=== PATIENT | female | born 1965 | race Caucasian/White ===

== ENCOUNTER 2017-08-16 14:14 | Inpatient (IN) ==
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
[2017-08-16 14:52] LABS: Bilirubin,Urine Negative (Negative); Blood,Urine Trace (Negative); Color,Urine Dark Yellow (Yellow); Glucose,Urine (UA) Normal (Normal); Ketones,Urine Negative (Negative); Leukocyte Esterase,Urine Small (Negative); Nitrite,Urine Positive (Negative); PH,Urine 6.5 pH Units (5.0-8.0); Protein,Urine 100 mg/dL (Neg-Trace); Specific Gravity,Urine 1.024 (1.010-1.025); Urobilinogen,Urine Normal (Normal)
[2017-08-16 14:55] LABS: Bacteria,Urine Many per hpf (None-Few); Hyaline Casts,Urine None Seen per lpf (None-Few); Squamous Epithelial Cell,Urine Many per lpf (None-Few)
[2017-08-16 14:57] LABS: Clarity,Urine Hazy (Clear)
[2017-08-16 14:58] LABS: Amphetamine Screen,Urine Negative ng/mL (Cutoff=1000); Barbiturate Screen,Urine Negative ng/mL (Cutoff=200); Benzodiazepines Screen,Urine Negative ng/mL (Cutoff=200); Cannabinoid Screen,Urine Negative ng/mL (Cutoff = 50); Cocaine Screen,Urine Negative ng/mL (Cutoff= 300); Opiate Screen,Urine Negative ng/mL (Cutoff=300); Phencyclidine Screen,Urine Negative ng/mL (Cutoff=25)
[2017-08-16 14:58] LABS: Basophils # 0.1 K/mcL (0.0-0.2); Basophils % 0.4 %; Eosinophils # 0.1 K/mcL (0.0-0.6); Eosinophils % 0.4 %; Hematocrit 50.8 % (35.3-44.9); Hemoglobin 16.9 g/dL (11.5-15.4); Immature Granulocytes % 0.4 % (0-4); Lymphocytes # 2.1 K/mcL (0.6-4.6); Lymphocytes % 15.7 %; Mean Corpuscular HGB Conc 33.3 g/dL (31.6-35.5); Mean Corpuscular Hemoglobin 30.8 pg (28.0-33.3); Mean Corpuscular Volume 92.7 fL (83.0-100.0); Mean Platelet Volume 9.6 fL (9.4-12.4); Monocytes # 0.7 K/mcL (0.0-1.3); Neutrophils # 10.5 K/mcL (1.6-8.9); Platelet Count 370 K/mcL (140-400); Red Blood Count 5.48 M/mcL (3.82-4.97); Red Cell Distribution Width 12.8 % (11.5-14.5); Segmented Neutrophils % 78.1 %
[2017-08-16 15:15] LABS: Acetaminophen < 10 mcg/mL (10-20)
[2017-08-16 15:22] LABS: BUN/Creatinine Ratio 12 (6-26); Blood Urea Nitrogen 8 mg/dL (6-20); Calcium 9.8 mg/dL (8.6-10.3); Carbon Dioxide 26 mEq/L (23-29); Chloride 105 mEq/L (98-107); Ethanol < 10 mg/dL (Less than 10); Glucose 132 mg/dL (70-105); Osmolality,Calculated 288 (280-300); Potassium 3.4 mEq/L (3.5-5.1); Salicylate < 2.5 mg/dL (15.0-30.0); Sodium 139 mEq/L (136-145); Troponin I 0.04 ng/mL (< 0.04); eGFR For African Americans > 60 (> 60); eGFR For Non-African Americans > 60 (> 60)
[2017-08-16] MEDS ORDERED: cefTRIAXone 1,000 MG in Water for inj. (sterile) 20 ML 10 ML IVP ONE (15:30)
[2017-08-16] MEDS ORDERED: Aspirin 81 MG TAB.CHEW PO STA (15:30)
[2017-08-16] MEDS ORDERED: Acetaminophen 325 MG TABLET PO ONE (15:45)
[2017-08-16] MEDS ORDERED: Naloxone 0.4 MG/ML INJ IVP PRN (18:48)
[2017-08-16] MEDS ORDERED: Acetaminophen 325 MG TABLET PO PRN (18:48)
[2017-08-16] MEDS ORDERED: *HR* HYDROcodone/Acet 5/325 mg TABLET PO PRN (18:48)
[2017-08-16] MEDS ORDERED: Nitroglycerin 0.4 MG TAB.SUBL SL PRN (18:53)
[2017-08-16] MEDS ORDERED: *HR* Promethazine 25 MG/ML VIAL IVP PRN (18:57)
--- NOTE | 2017-08-16 19:12 | Internal Med History&Physical ---
<Micah Cuenca Estelle - Last Filed: 08/16/17 22:28> Date of Encounter: 08/16/17 Time of Encounter: 18:00 Internal Medicine - H&P: HPI Chief complaint: CP/Suicidal ideation Admitted From: Emergency Dept Plans for Post Hospital Care: Home History of present illness: Ms. Silveira is a 51 year old female w/PMH of COPD, DVT in the left axilla 5-6 years ago, and bipolar depression presents from the ED with chief complaint of chest pain located in the center of her chest and slightly to the left which presents as sharp and stabbing pain and intermittent in nature. Patient reports similar symptoms several years ago. Accompanying sx: SOB, N/V. No alleviating or aggravating factors. Pt. also reports suicidal ideation on admission that she states was d/t stress. Pt. denies suicidal/homicidal ideations now. Reports depression is not well-managed and needs provider for psychiatric needs. Also reports fever and chills. Denies recent illness, changes in vision, unusual bleeding, palpitations, headache, cough, congestion, abdominal pain, diarrhea, constipation, numbness, tingling, dizziness, lightheadedness, pre-syncope, or syncope. Past Med Surg Social Fam HX - Past Medical History Source: patient, old records reviewed Medical history: COPD, DVT (-6 years ago in left axilla. Not on anticoagulation presently.) Psychiatric history: bipolar, depression - Past Surgical History Surgical History: hysterectomy (Partial), orthopedic, other (Rt. ACL and meniscus) - Social History Smoking Status: Current every day smoker Packs per day: 1 PPD Smokeless Tobacco Status: No Alcohol use: occasionally Drug use: none Current living situation: Home Activity Level: Independent ambulation Recent Out of Country Travel Within the Last 8 Weeks: No Exposure or Possible Exposure to Illness During Travel: No - Family History Father Race: Family Member Ethnicity: Non- Living Status: Age at : 67 Cause of : [place] Hx Family Cardiac Disorders: Yes ([place] > 12, HLD, HTN) Hx Family Endocrine Disorder: Yes (DM) Mother Race: Family Member Ethnicity: Non- Living Status: Age at : 63 Cause of : Stroke Hx Family Cardiac Disorders: Yes (Stroke) Hx Family Genitourinary Disorders: Yes (CKD) Hx Family Endocrine Disorder: Yes (DM) Sister Race: Family Member Ethnicity: Non- Living Status: Still Living Hx Family Cancer: Yes (Female) Hx Family Endocrine Disorder: Yes (DM) Internal Medicine - H&P: Meds Oxybutynin Chloride [Ditropan Xl] 5 mg PO DAILY 11/15/16 [History] Potassium Chloride [Klor-Con 10] 10 meq PO DAILY 11/15/16 [History] Albuterol Sulfate [Albuterol Inhaler] 2 puff IH Q4-6H PRN 08/16/17 [History] Escitalopram [Lexapro] 20 mg PO DAILY 08/16/17 [History] Zaleplon [Sonata] 5 mg PO DAILY 08/16/17 [History] 3 Allergy/AdvReac Type Severity Reaction Status Date / Time No Known Allergies Allergy Verified 08/16/17 16:04 All Systems PM: A 10-system review of systems was performed and is negative for pertinent findings except as documented above in the HPI. - Constitutional Constitutional: as per HPI, chills, fever(s), no night sweats - EENT Eyes: no change in vision, no discharge, no pain, no photophobia Ears: no ear discharge, no ear pain, no tinnitus Nose, mouth and throat: no dysphagia, no nasal discharge, no neck pain, no sore throat - Breasts Breasts: as per HPI - Cardiovascular Cardiovascular ROS IM: as per HPI, chest pain, dyspnea, dyspnea on exertion, no diaphoresis, no lightheadedness, no palpitations, no syncope - Respiratory Respiratory: as per HPI, dyspnea, dyspnea on exertion, no cough, no wheezing, no excessive phlegm production - Gastrointestinal Gastrointestinal: nausea, vomiting, no abdominal pain, no diarrhea, no hematemesis, no hematochezia, no melena - Genitourinary Genitourinary: as per HPI, urinary frequency, urinary urgency, no change in urinary stream, no dysuria, no flank pain, no hematuria Menstruation: as per HPI - Musculoskeletal Musculoskeletal ROS IM: no numbness, no tingling - Integumentary Integumentary IM: no rash, no unusual bruising - Neurological Neurological ROS: no confusion, no convulsions, no focal weakness, no numbness, no tingling, no tremor(s) - Psychiatric Psychiatric: as per HPI, depression, mood swings - Endocrine Endocrine IM: as per HPI - Hematologic/Lymphatic Hematologic/Lymphatic: no easy bruising - Allergic/Immunologic Allergic/Immunologic: as per HPI - Constitutional Vitals: Temp Pulse Resp BP Pulse Ox 99.0 F 87 14 141/92 98 08/16/17 14:15 08/16/17 17:25 08/16/17 17:25 08/16/17 17:25 08/16/17 17:25 General appearance: Present: cooperative, A&O X 3, pleasant, no acute distress, answers questions appropriately - Head Head exam: Present: atraumatic, normocephalic - Eye Eye exam: Present: PERRL, conjuntiva pink, sclera anicteric Pupils: Present: PERRL - ENT ENT exam: Present: normal exam - Neck Neck exam general surgery: Present: normal inspection, supple, trachea midline. Absent: lymphadenopathy - Respiratory Respiratory exam: Present: CTAB. Absent: accessory muscle use, rales, rhonchi, wheezes - Cardiovascular Cardiovascular exam: Present: RRR, +S1, +S2. Absent: diastolic murmur, gallop, rubs, systolic murmur - GI/Abdominal GI/Abdominal exam: Present: normal bowel sounds, soft, no peritoneal signs. Absent: distended, tenderness - Rectal Rectal exam: Present: deferred - Additional comments: exam deferred. - Extremities Exam Extremities exam: Present: warm, radial pulses palpable and symmetrical. Absent : calf tenderness, cyanotic, pedal edema - Back Exam Back exam: Present: normal inspection - Neurological Exam Neurological exam: Present: CN II-XII intact, oriented X3, no focal deficits. Absent: pronater drift, facial droop, speech deficit - Psychiatric Psychiatric exam: Present: anxious - Skin Skin exam: Present: dry, intact Internal Med - H&P Results - Labs CBC & Chem 7: 08/16/17 14:45 08/16/17 14:45 - EKG Data EKG shows normal: sinus rhythm - EKG Data Prior EKG available for review: no EKG comments: 08/16/17 19:23 EKG dated 08/16/17 shows sinus rhythm with borderline left axis deviation and nonspecific T-wave abnormality. - Diagnostic Studies Chest x-ray Additional comments: Impressions Chest X-Ray 08/16/17 14:24 IMPRESSION: No radiographic abnormality identified in the chest. D/ / Mark Baird / Mark Baird Interpreting Provider: Mark Baird - Assessment and plan (1) Chest pain Current Visit: Yes Status: Acute Assessment and plan: Acute chest pain in central to left chest described as sharp/stabbing and intermittent. Previous sx several years ago. Pt. reports severe stress in her life currently and reports not taking her medications for several weeks. No radiation. Initial troponin 0.04. Will trend. Aspirin. Nitro SL PRN. Lipitor 80 mg PO now. Continuous cardiac telemetry. Echocardiogram. Second troponin 0.37. Pt. still having intermittent CP that is transient. Low-dose heparin drip ordered. Cardiology consult ordered and discussed w/Dr. Scott and I appreciate the consult. Pt. discussed w/Dr. Graham who agrees w/plan of care. Pt. is high risk for further morbidity d/t current CP and hx of CP in past, current need of heparin drip w/close monitoring and titration, suicidal ideation , and chronic UTI for the past several weeks. Inpatient. Qualifiers: Chest pain type: unspecified Qualified Code(s): R07.9 - Chest pain, unspecified (2) Suicidal ideation Current Visit: Yes Status: Acute Assessment and plan: Acute suicidal ideation on admission. Pt. reports bipolar depression that is not well-managed. Reports no psychiatric provider. Pt. denies suicidal/ homicidal ideations on exam and states she told EMS she did not want to live but was under severe stress. Reports guns in her home but had them removed. Sitter. Psychiatric consult ordered. Suicide precautions. (3) Elevated troponin Current Visit: Yes Status: Acute Assessment and plan: Acutely elevated initial troponin of 0.04 on admission. Will trend. Pt. reports intermittent CP. Continuous cardiac telemetry. Echocardiogram. Nitro PRN. Aspirin. Second troponin 0.37. Will begin low-dose heparin drip. Cardiology consult ordered and discussed w/Dr. Scott and I appreciate the consult. (4) Urinary tract infection Current Visit: Yes Status: Acute Assessment and plan: Acute UTI. Reports fever/chills. Stat Urine culture w/reflex and micro ordered. Levaquin 750 mg IVPB daily for infection coverage. Will adjust abx coverage based on culture results. WBC currently 13.4. Will monitor pt. and f/u labs. Qualifiers: Urinary tract infection type: site unspecified Hematuria presence: with hematuria Qualified Code(s): N39.0 - Urinary tract infection, site not specified; R31.9 - Hematuria, unspecified; R31.9 - Hematuria, unspecified (5) Nausea & vomiting Current Visit: Yes Status: Acute Assessment and plan: Acute N/V associated w/current CP and UTI sx. Phenergan 12.5 mg. IVP Q6HR PRN for N/V. Monitor I&O. Qualifiers: Vomiting type: cyclical vomiting Vomiting Intractability: non-intractable Qualified Code(s): G43.A0 - Cyclical vomiting, not intractable (6) Hypokalemia Current Visit: Yes Status: Acute Assessment and plan: Acute hypokalemia w/potassium of 3.4 on admission. Continue pts. PO potassium and re-check level at 04:00. (7) Bipolar depression Current Visit: Yes Status: Chronic Assessment and plan: Hx of chronic bipolar depression. Continue pts. Lexapro. Sitter ordered d/t suicidal ideation. SW consult placed d/t pts. need for psychiatric provider. (8) DVT prophylaxis Current Visit: Yes Status: Acute Assessment and plan: Heparin 5,000 units SQ Q8 for DVT prophylaxis. Monitor pt. for signs of bleeding. (9) COPD (chronic obstructive pulmonary disease) Current Visit: Yes Status: Chronic Assessment and plan: Hx of chronic COPD. Stable. Continue pts. inhaler. Supplemental O2 w/titration and SpO2 monitoring PRN. Qualifiers: COPD type: unspecified COPD Qualified Code(s): J44.9 - Chronic obstructive pulmonary disease, unspecified - Time Spent With Patient Total time spent is greater than 50% in coordination of care (as documented) at patient's floor/unit and/or counseling patient: 25 - 35 minutes <Luis Felipe Graham - Last Filed: 08/17/17 06:02> Date of Encounter: 08/17/17 Internal Medicine - H&P: HPI History of present illness: Ms. Silveira is a 51 year old female All Systems PM: A 10-system review of systems was performed and is negative for pertinent findings except as documented above in the HPI. - Constitutional Vitals: Temp Pulse Resp BP Pulse Ox 98.1 F 78 16 132/81 93 08/17/17 02:28 08/17/17 02:28 08/17/17 02:28 08/17/17 02:28 08/17/17 02:28 Internal Med - H&P Results - Labs CBC & Chem 7: 08/17/17 03:11 08/17/17 03:11 Labs: Short CBC 08/17/17 Range/Units 03:11 WBC 8.5 (4.3-11.1) K/mcL Hgb 15.5 H (11.5-15.4) g/dL Hct 46.8 H (35.3-44.9) % Plt Count 334 (140-400) K/mcL Neutrophils # 4.8 (1.6-8.9) K/mcL BMP 08/17/17 03:11 Sodium 140 Potassium 3.2 L Chloride 106 Carbon Dioxide 25 BUN 7 Creatinine 0.55 L Glucose 99 Calcium 9.4 Cardiac Enzymes 08/17/17 Range/Units 03:11 Troponin I 0.24 H* (< 0.04) ng/mL Liver Function 08/17/17 Range/Units 03:11 Total Bilirubin 0.7 (0.3-1.0) mg/dL AST 13 (13-39) Units/L ALT 9 (7-52) Units/L Alkaline Phosphatase 52 (34-104) Units/L Albumin 4.1 (3.5-5.7) g/dL - Attending Attestation I have seen and examined this patient independently. I have discussed with SURGICAL CLINICAL REVIEWER Mr Cuenca regarding the management plan. Agree with the documentation. - Assessment and plan (1) Elevated troponin Current Visit: Yes Status: Acute (2) Chest pain Current Visit: Yes Status: Acute Qualifiers: Chest pain type: unspecified Qualified Code(s): R07.9 - Chest pain, unspecified (3) Suicidal ideation Current Visit: Yes Status: Acute (4) Urinary tract infection Current Visit: Yes Status: Acute Qualifiers: Urinary tract infection type: site unspecified Hematuria presence: with hematuria Qualified Code(s): N39.0 - Urinary tract infection, site not specified; R31.9 - Hematuria, unspecified; R31.9 - Hematuria, unspecified (5) Bipolar depression Current Visit: Yes Status: Chronic (6) Nausea & vomiting Current Visit: Yes Status: Acute Qualifiers: Vomiting type: cyclical vomiting Vomiting Intractability: non-intractable Qualified Code(s): G43.A0 - Cyclical vomiting, not intractable (7) DVT prophylaxis Current Visit: Yes Status: Acute (8) Hypokalemia Current Visit: Yes Status: Acute (9) COPD (chronic obstructive pulmonary disease) Current Visit: Yes Status: Chronic Qualifiers: COPD type: unspecified COPD Qualified Code(s): J44.9 - Chronic obstructive pulmonary disease, unspecified - Time Spent With Patient Total time spent is greater than 50% in coordination of care (as documented) at patient's floor/unit and/or counseling patient:
[2017-08-16] MEDS: Levofloxacin 750 MG/150 ML 750 MG/150 ML BAG IVPB SCH (20:35)
[2017-08-16] MEDS: Nicotine 14 MG PATCH.TD24 TD SCH (20:55)
[2017-08-16 21:13] LABS: Bilirubin,Urine Negative (Negative); Blood,Urine Negative (Negative); Clarity,Urine Clear (Clear); Color,Urine Yellow (Yellow); Glucose,Urine (UA) Normal (Normal); Ketones,Urine Negative (Negative); Leukocyte Esterase,Urine Moderate (Negative); Nitrite,Urine Negative (Negative); PH,Urine 6.5 pH Units (5.0-8.0); Protein,Urine Negative (Neg-Trace); Specific Gravity,Urine 1.017 (1.010-1.025); Urobilinogen,Urine Normal (Normal)
[2017-08-16 21:17] LABS: Bacteria,Urine None Seen per hpf (None-Few); Hyaline Casts,Urine None Seen per lpf (None-Few); Squamous Epithelial Cell,Urine Many per lpf (None-Few)
[2017-08-16] MEDS ORDERED: *HR* Heparin 5,000 UNIT/ML VIAL SQ SCH (22:00)
[2017-08-16] MEDS ORDERED: *HR* Heparin 5,000 UNIT/ML VIAL IVP ONE (22:05)
[2017-08-16] MEDS ORDERED: *HR* Heparin 5,000 UNIT/ML VIAL IVP PRN ×2 (22:05)
[2017-08-16 22:42] LABS: Hematocrit 45.7 % (35.3-44.9); Hemoglobin 15.5 g/dL (11.5-15.4); Mean Corpuscular HGB Conc 33.9 g/dL (31.6-35.5); Mean Corpuscular Hemoglobin 30.7 pg (28.0-33.3); Mean Corpuscular Volume 90.5 fL (83.0-100.0); Mean Platelet Volume 9.7 fL (9.4-12.4); Platelet Count 320 K/mcL (140-400); Red Blood Count 5.05 M/mcL (3.82-4.97); Red Cell Distribution Width 12.8 % (11.5-14.5)
[2017-08-16 22:52] LABS: INR 1.1; Prothrombin Time 11.6 Seconds (9.4-12.1)
[2017-08-16 22:54] LABS: Activated Partial Thrombo Time 30.3 Seconds (26.0-36.0)
[2017-08-16] MEDS: Heparin 25,000 UNIT/500 ML D5W 25,000 UNIT/500 ML BAG IVC SCH (22:54)
[2017-08-16] MEDS ORDERED: *HR* LORazepam 2 MG/ML VIAL IVP ONE (23:15)
[2017-08-17] MEDS ORDERED: *HR* LORazepam 2 MG/ML VIAL IVP ONE ×2 (02:55→23:00)
[2017-08-17 04:44] LABS: Basophils % 0.5 %; Eosinophils # 0.1 K/mcL (0.0-0.6); Eosinophils % 1.2 %; Hematocrit 46.8 % (35.3-44.9); Hemoglobin 15.5 g/dL (11.5-15.4); Immature Granulocytes % 0.2 % (0-4); Lymphocytes % 35.9 %; Mean Corpuscular HGB Conc 33.1 g/dL (31.6-35.5); Mean Corpuscular Hemoglobin 30.6 pg (28.0-33.3); Mean Corpuscular Volume 92.3 fL (83.0-100.0); Mean Platelet Volume 10.3 fL (9.4-12.4); Monocytes # 0.5 K/mcL (0.0-1.3); Monocytes % 5.9 %; Neutrophils # 4.8 K/mcL (1.6-8.9); Platelet Count 334 K/mcL (140-400); Red Blood Count 5.07 M/mcL (3.82-4.97); Red Cell Distribution Width 12.8 % (11.5-14.5); Segmented Neutrophils % 56.3 %
[2017-08-17 04:51] LABS: INR 1.1; Prothrombin Time 12.2 Seconds (9.4-12.1)
[2017-08-17 05:02] LABS: Alanine Aminotransferase 9 Units/L (7-52); Albumin 4.1 g/dL (3.5-5.7); Albumin/Globulin Ratio 1.7 (1.1-2.2); Alkaline Phosphatase 52 Units/L (34-104); Aspartate Amino Transferase 13 Units/L (13-39); BUN/Creatinine Ratio 13 (6-26); Bilirubin,Total 0.7 mg/dL (0.3-1.0); Blood Urea Nitrogen 7 mg/dL (6-20); Calcium 9.4 mg/dL (8.6-10.3); Carbon Dioxide 25 mEq/L (23-29); Chloride 106 mEq/L (98-107); Chol/HDL Ratio 7.8 (0-4.9); Cholesterol 310 mg/dL (< 200); Globulin 2.4 g/dL (2.4-3.5); Glucose 99 mg/dL (70-105); HDL Cholesterol 40 mg/dL (40-59); LDL Cholesterol,Calculated 217 mg/dL (0-99); Magnesium 1.9 mg/dL (1.6-2.6); Osmolality,Calculated 288 (280-300); Potassium 3.2 mEq/L (3.5-5.1); Sodium 140 mEq/L (136-145); Total Protein 6.5 g/dL (6.4-8.9); Triglycerides 265 mg/dL (< 150); eGFR For African Americans > 60 (> 60); eGFR For Non-African Americans > 60 (> 60)
[2017-08-17] MEDS: Aspirin 81 MG TAB.CHEW PO SCH (08:35)
[2017-08-17] MEDS: Nicotine 14 MG PATCH.TD24 TD SCH (08:38)
--- NOTE | 2017-08-17 10:17 | Cardiology Consult Note ---
<Essence Rivera - Last Filed: 08/17/17 10:13> Date of Encounter: 08/17/17 Time of Encounter: 09:30 Assessment and Plan (1) NSTEMI (non-ST elevated myocardial infarction) Current Visit: Yes Status: Acute Per cardiology: -Troponins 0.04, 0.37, 0.24. -Had chest pain during an arguement. -Denies current chest pain. -ECG with no acute changes. -TTE pending. -ON heparin drip, asa. -Will start statin, beta yovana. -Of note, Discussed potential LHC with patient, patient states she is unsure if she would be agreeable to LHC. Also patient reports she gets tired of taking her medications and just quits taking them. Patient states she is unsure if she could take dual anti-platelet therapy uninterrupted for one month. -With patient's non-compliance, and possible refusal of LHC, suspect conservative medical management will be recommended with heparin drip for 48 hours. Will discuss with . -Cardiac rehab consult is not appropriate at this time. (2) Suicidal ideation Current Visit: Yes Status: Acute Per cardiology: -Patient has reported thought of suicide and killing her boyfriend. -Psych has been consulted. -Management per primary and psychiatry services. Discussion w patient/family: The assessment and plan as outlined above was discussed with the patient who expressed understanding and agreement. All questions were answered. Thank you for involving us in the care of your patient. Please call with any questions. Discussed and reviewed with . History of Present Illness Consult date: 08/16/17 Requesting physician: Micah Cuenca Consult reason: elevated troponin Chief complaint: chest pain, suicidial ideation History of present illness: Ms. Silveira is a 51 year old female with a relevant past medical history of COPD, HLD, anxiety, bipolar, anemia, tobacco abuse. Patient presented to [facility] with complaints of chest pain after an arguement with her boyfriend. Patient also reported wanting to kill her boyfriend and herself. Patient reports chest pain while arguing. Reports has had intermittent chest pain for a few weeks that always starts after anxiety/arguement. Denies aggravating or alleviating factors. Denies worsening shortness of breath, however reports worsenin fatigue over the past 6 months. Denies current chest pain. Past Med Surg Social Fam HX - Past Medical History Attestation: Yes The following information was validated with the patient. Source: patient, old records reviewed Medical history: COPD, DVT (-6 years ago in left axilla. Not on anticoagulation presently.) Psychiatric history: bipolar, depression - Past Surgical History Surgical History: hysterectomy (Partial), orthopedic, other (Rt. ACL and meniscus) - Social History Smoking Status: Current every day smoker Packs per day: 1 PPD Smokeless Tobacco Status: No Alcohol use: occasionally Drug use: none - Family History Father Race: Family Member Ethnicity: Non- Living Status: Age at : 67 Cause of : [place] Hx Family Cardiac Disorders: Yes ([place] > 12, HLD, HTN) Hx Family Endocrine Disorder: Yes (DM) Mother Race: Family Member Ethnicity: Non- Living Status: Age at : 63 Cause of : Stroke Hx Family Cardiac Disorders: Yes (Stroke) Hx Family Genitourinary Disorders: Yes (CKD) Hx Family Endocrine Disorder: Yes (DM) Sister Race: Family Member Ethnicity: Non- Living Status: Still Living Hx Family Cancer: Yes (Female) Hx Family Endocrine Disorder: Yes (DM) Medications and Allergies Oxybutynin Chloride [Ditropan Xl] 5 mg PO DAILY 11/15/16 [History] Potassium Chloride [Klor-Con 10] 10 meq PO DAILY 11/15/16 [History] Albuterol Sulfate [Albuterol Inhaler] 2 puff IH Q4-6H PRN 08/16/17 [History] Escitalopram [Lexapro] 20 mg PO DAILY 08/16/17 [History] Zaleplon [Sonata] 5 mg PO DAILY 08/16/17 [History] 3 Allergy/AdvReac Type Severity Reaction Status Date / Time No Known Allergies Allergy Verified 08/16/17 16:04 All Systems Review: The remainder of the systems were reviewed and are negative - Constitutional Constitutional: fatigue - Cardiovascular Cardiovascular: as per HPI, chest pain at rest Physical Examination Vital Signs, Last 4 Hours Temp Pulse Resp BP Pulse Ox 08/17/17 07:10 98.1 F 87 14 120/81 93 08/17/17 06:22 93 General: Conversant, No Apparent Distress HEENT: Atraumatic, Normocephaly, Mucus Membranes Moist Neck: No JVD, Normal carotid pulses Cardiac: Reg Rate and Rhythm, Normal S1 and S2, No Murmur Lungs: Normal Breath Sounds, No Wheeze, Rales, Rhonchi Neuro: Alert and responsive, No focal deficits noted Abdomen: Soft, Non-Tender Skin: No rashes noted on visualized skin Musculoskeletal: No Chest Wall Tenderness Extremities: No Clubbing, No Cyanosis, No Edema, Normal Pulses Results 08/17/17 03:11 08/17/17 03:11 Lab Results Impressions Chest X-Ray 08/16/17 14:24 IMPRESSION: No radiographic abnormality identified in the chest. D/ / Mark Baird / Mark Baird Interpreting Provider: Mark Baird Active Medications Acetaminophen (Tylenol) 650 mg PO Q6HR PRN PRN Reason: Mild Pain/Fever Stop: 02/15/18 18:49 Hydrocodone Bitart/Acetaminophen ([place] 5-325 Mg) 1 tab PO Q6HR PRN PRN Reason: Moderate Pain Stop: 02/15/18 18:49 Albuterol Sulfate (Albuterol Inhaler) 2 puff IH Q4H PRN PRN Reason: Shortness Of Breath Stop: 02/15/18 18:54 Aspirin (Aspirin) 81 mg PO DAILY [facility] Stop: 02/16/18 09:01 Last Admin: 08/17/17 08:35 Dose: 81 mg Escitalopram Oxalate (Lexapro) 20 mg PO DAILY [facility] Stop: 02/16/18 09:01 Last Admin: 08/17/17 08:35 Dose: 20 mg Heparin Sodium (Porcine) (Heparin) 4,000 unit IVP Q6HR PRN PRN Reason: SEE COMMENTS Stop: 02/15/18 22:06 Heparin Sodium (Porcine) (Heparin) 2,000 unit IVP Q6H PRN PRN Reason: SEE COMMENTS Stop: 02/15/18 22:06 Last Admin: 08/17/17 06:21 Dose: 2,000 unit Levofloxacin/Dextrose (Levaquin Premix 750mg/150 Ml) 750 mg in 150 mls @ 100 mls/hr IVPB QPM [facility]A PRN Reason: Protocol Stop: 02/15/18 19:01 Last Infusion: 08/16/17 22:00 Dose: Infused Heparin Sodium/Dextrose (Heparin 25,000 Unit/500 Ml D5w) 25,000 unit in 500 mls @ 17.418 mls/hr IVC .Q24H EVA; 12 UNIT/KG/HR PRN Reason: Protocol Stop: 02/15/18 22:16 Last Titration: 08/17/17 06:21 Dose: 14.05 unit/kg/hr, 20.4 mls/hr Naloxone HCl (Narcan) 0.4 mg IVP Q2MIN PRN PRN Reason: SEE COMMENTS Stop: 02/15/18 18:49 Nicotine (Nicoderm) 14 mg TD DAILY [facility] PRN Reason: Protocol Stop: 02/15/18 19:01 Last Admin: 08/17/17 08:38 Dose: 14 mg Nitroglycerin (Nitroglycerin) 0.4 mg SL Q5MIN PRN PRN Reason: Chest Pain Stop: 02/15/18 18:54 Oxybutynin Chloride (Ditropan) 5 mg PO BID [facility] Stop: 02/16/18 09:01 Last Admin: 08/17/17 08:35 Dose: 5 mg Potassium Chloride (Potassium Chloride) 10 meq PO DAILY [facility] Stop: 02/15/18 19:01 Last Admin: 08/17/17 08:35 Dose: 10 meq Promethazine HCl (Phenergan) 12.5 mg IVP Q6HR PRN PRN Reason: Nausea And Vomiting Stop: 02/15/18 18:58 Zolpidem Tartrate (Ambien) 5 mg PO HS [facility] Stop: 02/15/18 21:01 Last Admin: 08/16/17 20:35 Dose: 5 mg Laboratory Tests 08/16/17 08/16/17 08/17/17 14:45 20:53 03:11 Hgb Potassium Creatinine Troponin I 0.04 H* 0.37 H* 0.24 H* Triglycerides Cholesterol LDL Cholesterol, Calc 08/17/17 08/17/17 03:11 03:11 Hgb 15.5 H Potassium 3.2 L Creatinine 0.55 L Troponin I Triglycerides 265 H Cholesterol 310 H LDL Cholesterol, Calc 217 H - Imaging and Cardiology Chest Xray: report reviewed Echo: pending - EKG Interpretation EKG results cardiology: personally reviewed (ECG with SR, HR 92.), other ( Telemetry reviewed with average HR previous 12 hours noted to be 84, SR. PVCs and PACs noted.) Consult Discharge Plan - Plan Referrals: Dalila Weston, SUPERIOR COURT JUDGE [Primary Care Provider] - <Ronald Olsen - Last Filed: 08/18/17 11:11> Date of Encounter: 08/17/17 Time of Encounter: 21:00 - Attending Attestation I have personally performed a face to face evaluation on this patient. I have reviewed and agree with the care plan. History and Exam by me shows: CC: chest pain PT complains of chest pain, mid sternal, provoked by emotional upset, accompanied by shortness of breath, lasts five to ten minutes, resolves with rest and calming down. She has had these episodes of chest pain for "awhile", but is unable to quantitate. She reports was very emotionally upset with her boyfriend when chest pain started with this event. She is pain free at present. PMHx: reviewed PE: reviewed, aggree with documented findings. IMP/plan: 1. NSTEMI: pt is a candidate for LHC, possible revascularization, however declines to take any prescibred medications for her heart condition, and reports she may not take medications for her psych issues. In light of refusal to take prescribed meds, recommend optimal medical management for now. If she changes her mind, would readdress non-invasive strategy as she does meet criteria for LHC/poss. Echo ordered, will discuss with pt again in AM. 2. Bipolar disorder: appreciate psych eval pending 3. COPD, continues to smoke against medical advice Assessment and Plan Discussion w patient/family: The assessment and plan as outlined above was discussed with the patient and/or family members who expressed understanding and agreement. All questions were answered. Thank you for involving us in the care of your patient. Please call with any questions. History of Present Illness History of present illness: Ms. Silveira is a 51 year old female All Systems Review: The remainder of the systems were reviewed and are negative Physical Examination Vital Signs, Last 4 Hours Temp Pulse Resp BP Pulse Ox 08/18/17 10:29 98.1 F 88 20 109/79 93 08/18/17 07:07 97.7 F 80 16 113/77 93 Results 08/18/17 03:08 08/18/17 03:08 Lab Results 08/17/17 08/17/17 08/18/17 13:21 19:15 00:27 WBC Hgb Hct Plt Count APTT 45.1 H 71.9 H D Sodium Potassium Chloride Carbon Dioxide BUN Creatinine Glucose Calcium Total Bilirubin AST ALT Alkaline Phosphatase Troponin I 0.07 H* 08/18/17 08/18/17 08/18/17 03:08 03:08 03:08 WBC 7.6 Hgb 15.1 Hct 44.1 Plt Count 294 APTT 65.8 H Sodium 137 Potassium 3.5 Chloride 104 Carbon Dioxide 27 BUN 7 Creatinine 0.59 L Glucose 107 H Calcium 9.3 Total Bilirubin 0.6 AST 14 ALT 10 Alkaline Phosphatase 53 Troponin I 08/18/17 05:33 WBC Hgb Hct Plt Count APTT Sodium Potassium Chloride Carbon Dioxide BUN Creatinine Glucose Calcium Total Bilirubin AST ALT Alkaline Phosphatase Troponin I 0.04 H*
[2017-08-17] MEDS: Metoprolol XL (24 HR) Succ 25 MG TAB.ER.24H PO SCH (11:08)
--- NOTE | 2017-08-17 11:52 | Internal Med Progress Note ---
Date of Encounter: 08/17/17 Time of Encounter: 11:52 - Assessment and plan (1) NSTEMI (non-ST elevated myocardial infarction) Current Visit: Yes Status: Acute Assessment and plan: Per cardiology troponins 0.04 0.37 0.24 denies any current chest pain EKG with no acute changes Pending TTE Patient was seen by cardiology discussed potential LHC at this time patient is refusing LHC-concerns about medication compliance, possibly medical management- cardiology recommending heparin drip for 48 hours Continue with statin and beta yovana Nitroglycerin as needed for chest pain (2) Chest pain Current Visit: Yes Status: Acute Assessment and plan: As above Qualifiers: Chest pain type: unspecified Qualified Code(s): R07.9 - Chest pain, unspecified (3) Suicidal ideation Current Visit: Yes Status: Resolved Assessment and plan: Presently denying any suicidal ideation however upon presentation to the ER she received ported thoughts of suicide and killing her . There was accessed to firearms in the home however these items have been removed Psychiatry has been consulted appreciate recommendations She is on suicidal observation (4) Urinary tract infection Current Visit: Yes Status: Acute Assessment and plan: 1 urinalysis is dirty specimen-we will recheck urinalysis Qualifiers: Urinary tract infection type: site unspecified Hematuria presence: with hematuria Qualified Code(s): N39.0 - Urinary tract infection, site not specified; R31.9 - Hematuria, unspecified; R31.9 - Hematuria, unspecified (5) Bipolar depression Current Visit: Yes Status: Chronic Assessment and plan: Continue with Lexapro awaiting psychiatric evaluation (6) Nausea & vomiting Current Visit: No Status: Resolved Assessment and plan: This has resolved-antiemetics as needed Qualifiers: Vomiting type: cyclical vomiting Vomiting Intractability: non-intractable Qualified Code(s): G43.A0 - Cyclical vomiting, not intractable (7) DVT prophylaxis Current Visit: Yes Status: Acute Assessment and plan: Patient is on heparin drip (8) Hypokalemia Current Visit: Yes Status: Acute Assessment and plan: Monitor and replace (9) COPD (chronic obstructive pulmonary disease) Current Visit: Yes Status: Chronic Assessment and plan: She does not appear to be in exacerbation at this time, bronchodilators as needed oxygen as needed Qualifiers: COPD type: unspecified COPD Qualified Code(s): J44.9 - Chronic obstructive pulmonary disease, unspecified - Time Spent With Patient Total time spent is greater than 50% in coordination of care (as documented) at patient's floor/unit and/or counseling patient: - Subjective Interval history: Tristan patient denies any chest pain or shortness of breath. She denies any suicidal or homicidal ideations at this time. She was seen by cardiology earlier there was discussion concerning possible left heart catheter however patient is refusing at this time. Awaiting psychiatry recommendations - Constitutional Vitals: Temp Pulse Resp BP Pulse Ox 98.1 F 87 14 120/81 93 08/17/17 07:10 08/17/17 07:10 08/17/17 07:10 08/17/17 07:10 08/17/17 07:10 General appearance: Present: cooperative, A&O X 3, pleasant, no acute distress, answers questions appropriately - Head Head exam: Present: atraumatic, normocephalic - Eye Eye exam: Present: PERRL, conjuntiva pink, sclera anicteric Pupils: Present: PERRL - Neck Neck exam general surgery: Present: supple, trachea midline. Absent: lymphadenopathy - Respiratory Respiratory exam: Present: CTAB. Absent: accessory muscle use, rales, rhonchi, wheezes - Cardiovascular Cardiovascular exam: Present: RRR, +S1, +S2. Absent: diastolic murmur, gallop, rubs, systolic murmur - GI/Abdominal GI/Abdominal exam: Present: normal bowel sounds, soft, no peritoneal signs. Absent: distended, tenderness - Extremities Exam Extremities exam: Present: warm, radial pulses palpable and symmetrical. Absent : calf tenderness, cyanotic, pedal edema - Neurological Exam Neurological exam: Present: CN II-XII intact, oriented X3, no focal deficits. Absent: pronater drift, facial droop, speech deficit - Skin Skin exam: Present: dry, intact Internal Medicine: Result - Labs CBC & Chem 7: 08/17/17 03:11 08/17/17 03:11 Labs: Short CBC 08/17/17 Range/Units 03:11 WBC 8.5 (4.3-11.1) K/mcL Hgb 15.5 H (11.5-15.4) g/dL Hct 46.8 H (35.3-44.9) % Plt Count 334 (140-400) K/mcL Neutrophils # 4.8 (1.6-8.9) K/mcL BMP 08/17/17 03:11 Sodium 140 Potassium 3.2 L Chloride 106 Carbon Dioxide 25 BUN 7 Creatinine 0.55 L Glucose 99 Calcium 9.4 Cardiac Enzymes 08/17/17 Range/Units 03:11 Troponin I 0.24 H* (< 0.04) ng/mL Liver Function 08/17/17 Range/Units 03:11 Total Bilirubin 0.7 (0.3-1.0) mg/dL AST 13 (13-39) Units/L ALT 9 (7-52) Units/L Alkaline Phosphatase 52 (34-104) Units/L Albumin 4.1 (3.5-5.7) g/dL - ABG Interpretation ABG results: PT/INR, D-dimer PT 12.2 Seconds (9.4-12.1) H 08/17/17 03:11 Consult Discharge Plan - Plan Referrals: Dalila Weston, ADDISON [Primary Care Provider] -
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
[2017-08-17 17:44] LABS: Estimated Average Glucose 117 mg/dl; Hemoglobin A1C 5.7 %
[2017-08-17] MEDS: Levofloxacin 750 MG/150 ML 750 MG/150 ML BAG IVPB SCH (19:45)
[2017-08-17] MEDS: Heparin 25,000 UNIT/500 ML D5W 25,000 UNIT/500 ML BAG IVC SCH (21:28)
[2017-08-17] MEDS ORDERED: *HR* LORazepam 2 MG/ML VIAL IVP PRN (23:03)
--- NOTE | 2017-08-18 | Event Note ---
Date of Encounter: 08/17/17 Time of Encounter: 20:13 Alerted by pts. nurse that pt. wanted to leave AMA. Went to see pt. and explained that she is currently on heparin drip d/t elevated troponin and that she was admitted w/CP. Explained the risks and dangers of leaving AMA to pt. who said she would think about it. Notified later that pts. SO was present and wanted explanation of earlier discussion. Pt. consented to discuss information w /SO. Explained conversation regarding heparin, elevated troponin, and risks associated with leaving, including possible . Pt. and SO expressed understanding and agreed w/plan to stay. Pt. would like information in the a.m regarding continuation of plan of care. Pt. to be monitored closely.
[2017-08-18 03:31] LABS: Basophils % 0.5 %; Eosinophils # 0.1 K/mcL (0.0-0.6); Eosinophils % 1.7 %; Hematocrit 44.1 % (35.3-44.9); Hemoglobin 15.1 g/dL (11.5-15.4); Immature Granulocytes % 0.3 % (0-4); Lymphocytes # 3.7 K/mcL (0.6-4.6); Lymphocytes % 48.6 %; Mean Corpuscular HGB Conc 34.2 g/dL (31.6-35.5); Mean Corpuscular Hemoglobin 31.4 pg (28.0-33.3); Mean Corpuscular Volume 91.7 fL (83.0-100.0); Mean Platelet Volume 9.9 fL (9.4-12.4); Monocytes # 0.4 K/mcL (0.0-1.3); Neutrophils # 3.4 K/mcL (1.6-8.9); Platelet Count 294 K/mcL (140-400); Red Blood Count 4.81 M/mcL (3.82-4.97); Red Cell Distribution Width 12.4 % (11.5-14.5); Segmented Neutrophils % 43.9 %
[2017-08-18 03:42] LABS: Alanine Aminotransferase 10 Units/L (7-52); Albumin 4.1 g/dL (3.5-5.7); Albumin/Globulin Ratio 1.9 (1.1-2.2); Alkaline Phosphatase 53 Units/L (34-104); Aspartate Amino Transferase 14 Units/L (13-39); BUN/Creatinine Ratio 12 (6-26); Bilirubin,Total 0.6 mg/dL (0.3-1.0); Blood Urea Nitrogen 7 mg/dL (6-20); Calcium 9.3 mg/dL (8.6-10.3); Carbon Dioxide 27 mEq/L (23-29); Chloride 104 mEq/L (98-107); Globulin 2.2 g/dL (2.4-3.5); Glucose 107 mg/dL (70-105); Osmolality,Calculated 282 (280-300); Potassium 3.5 mEq/L (3.5-5.1); Sodium 137 mEq/L (136-145); Total Protein 6.3 g/dL (6.4-8.9); eGFR For African Americans > 60 (> 60); eGFR For Non-African Americans > 60 (> 60)
[2017-08-18] MEDS: Metoprolol XL (24 HR) Succ 25 MG TAB.ER.24H PO SCH (08:53)
[2017-08-18] MEDS: Nicotine 14 MG PATCH.TD24 TD SCH (08:54)
[2017-08-18] MEDS: Aspirin 81 MG TAB.CHEW PO SCH (08:54)
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
--- NOTE | 2017-08-18 13:50 | Consult Note ---
Date of Encounter: 08/18/17 Time of Encounter: 13:00 Assessment & Recommendation (1) Major depressive disorder, recurrent Current visit: Yes Status: Acute Qualifiers: Active/Remission status: currently active Major depression episode severity : moderate Qualified Code(s): F33.1 - Major depressive disorder, recurrent, moderate (2) Suicidal ideation Current visit: Yes Status: Resolved Assessment & Recommendation: patient not in imenent danger to self/others at present. (3) Elevated troponin Current visit: Yes Status: Acute (4) Chest pain Current visit: Yes Status: Acute Qualifiers: Chest pain type: unspecified Qualified Code(s): R07.9 - Chest pain, unspecified (5) COPD (chronic obstructive pulmonary disease) Current visit: Yes Status: Chronic Qualifiers: COPD type: unspecified COPD Qualified Code(s): J44.9 - Chronic obstructive pulmonary disease, unspecified History of Present Illness Patient: new to practice Requesting Physician: Bartolome Carver MD History of present illness: Ms. Silveira is a 51 year old female was seen today for follow up , she is sitting on bed comfortably not in any distress . She feels better , when i asked her about her wanting to leave AMA , she said i thouught what ever they are doing i can do at home, but then the doctor explained to me and i agreed as i did not know what was wrong, she states i also agreed for them to do the procedure they want to do angiogram. She is still anxious , depression is better, no suicidal or homicidal ideation . education about compliance given. A/P continue escitalopram 20 mg , need out patient rehab follow up and psychiatric f/u. thank you for involving psych in your patients care. will signoff , if needed please call us. CC: Bartolome Carver MD Past Med Surg Social Fam HX - Past Medical History Medical history: COPD, DVT (-6 years ago in left axilla. Not on anticoagulation presently.) - Past Psychiatric History Psychiatric history: Reports: anxiety, depression Family psychiatric history: No Family History of Suicide: None - Past Surgical History Surgical History: hysterectomy (Partial), orthopedic, other (Rt. ACL and meniscus) - Social History Smoking Status: Current every day smoker Smokeless Tobacco Status: No Alcohol use: occasionally Drug use: none - Family History Father Race: Family Member Ethnicity: Non- Living Status: Age at : 67 Cause of : LA Hx Family Cardiac Disorders: Yes (LA > 12, HLD, HTN) Hx Family Endocrine Disorder: Yes (DM) Mother Race: Family Member Ethnicity: Non- Living Status: Age at : 63 Cause of : Stroke Hx Family Cardiac Disorders: Yes (Stroke) Hx Family Genitourinary Disorders: Yes (CKD) Hx Family Endocrine Disorder: Yes (DM) Sister Race: Family Member Ethnicity: Non- Living Status: Still Living Hx Family Cancer: Yes (Female) Hx Family Endocrine Disorder: Yes (DM) Medications & Allergies Oxybutynin Chloride [Ditropan Xl] 5 mg PO DAILY 11/15/16 [History] Potassium Chloride [Klor-Con 10] 10 meq PO DAILY 11/15/16 [History] Albuterol Sulfate [Albuterol Inhaler] 2 puff IH Q4-6H PRN 08/16/17 [History] Escitalopram [Lexapro] 20 mg PO DAILY 08/16/17 [History] Zaleplon [Sonata] 5 mg PO DAILY 08/16/17 [History] 3 Allergy/AdvReac Type Severity Reaction Status Date / Time No Known Allergies Allergy Verified 08/16/17 16:04 Review of Systems Psychiatric: Reports: depression, anxiety Psychiatry Exam - Constitutional Vitals: Temp Pulse Resp BP Pulse Ox 98.1 F 88 20 109/79 93 08/18/17 10:29 08/18/17 10:29 08/18/17 10:29 08/18/17 10:29 08/18/17 10:29 General appearance: age & developmentally appropriate, well-groomed, well- nourished - Musculoskeletal Station: relaxed Strength & Tone: normal for patient - Psychiatric Patient Orientation: Yes Person, Yes Time, Yes Place Level of alertness: Alert Behavior: calm, cooperative Eye Contact: Maintains Eye Contact Mood Description: Anxious Affect description: congruent with mood, full range Speech Volume: Normal Speech pattern: normal rate, normal rhythm, normal tone, fluent, spontaneous Language & Vocabulary: consistent with education Thought Process: Linear, Goal Oriented Thought Content: No Suicidal ideation, No Homicidal ideation, No Overt delusions Perceptual Disturbances: No Auditory hallucinations, No Visual hallucinations Attention Span Ability: Capable of Focused Attention Memory Description: Grossly Intact Patient Reliability: Reliable Historian Fund of knowledge: Yes abstraction ability, Yes aware of current events Intelligence Estimate: Average Judgment: Fair Insight: Partial Results - Labs Labs: Laboratory Last Values WBC 7.6 K/mcL (4.3-11.1) 08/18/17 03:08 RBC 4.81 M/mcL (3.82-4.97) 08/18/17 03:08 Hgb 15.1 g/dL (11.5-15.4) 08/18/17 03:08 Hct 44.1 % (35.3-44.9) 08/18/17 03:08 MCV 91.7 fL (83.0-100.0) 08/18/17 03:08 MCH 31.4 pg (28.0-33.3) 08/18/17 03:08 MCHC 34.2 g/dL (31.6-35.5) 08/18/17 03:08 RDW 12.4 % (11.5-14.5) 08/18/17 03:08 Plt Count 294 K/mcL (140-400) 08/18/17 03:08 MPV 9.9 fL (9.4-12.4) 08/18/17 03:08 Immature Gran % 0.3 % (0-4) 08/18/17 03:08 Seg Neutrophils % 43.9 % 08/18/17 03:08 Lymphocytes % 48.6 % 08/18/17 03:08 Monocytes % 5.0 % 08/18/17 03:08 Eosinophils % 1.7 % 08/18/17 03:08 Basophils % 0.5 % 08/18/17 03:08 Neutrophils # 3.4 K/mcL (1.6-8.9) 08/18/17 03:08 Lymphocytes # 3.7 K/mcL (0.6-4.6) 08/18/17 03:08 Monocytes # 0.4 K/mcL (0.0-1.3) 08/18/17 03:08 Eosinophils # 0.1 K/mcL (0.0-0.6) 08/18/17 03:08 Basophils # 0.0 K/mcL (0.0-0.2) 08/18/17 03:08 PT 12.2 Seconds (9.4-12.1) H 08/17/17 03:11 INR 1.1 08/17/17 03:11 APTT 65.8 Seconds (26.0-36.0) H 08/18/17 03:08 Sodium 137 mEq/L (136-145) 08/18/17 03:08 Potassium 3.5 mEq/L (3.5-5.1) 08/18/17 03:08 Chloride 104 mEq/L (98-107) 08/18/17 03:08 Carbon Dioxide 27 mEq/L (23-29) 08/18/17 03:08 BUN 7 mg/dL (6-20) 08/18/17 03:08 Creatinine 0.59 mg/dL (0.60-1.20) L 08/18/17 03:08 Est GFR ( Amer) > 60 (> 60) 08/18/17 03:08 Est GFR (Non-Af Amer) > 60 (> 60) 08/18/17 03:08 BUN/Creatinine Ratio 12 (6-26) 08/18/17 03:08 Glucose 107 mg/dL (70-105) H 08/18/17 03:08 Est Mean Plasma Glucose 117 mg/dl 08/17/17 03:11 Hemoglobin A1c 5.7 % (-5.6) H 08/17/17 03:11 Calculated Osmolality 282 (280-300) 08/18/17 03:08 Calcium 9.3 mg/dL (8.6-10.3) 08/18/17 03:08 Magnesium 1.9 mg/dL (1.6-2.6) 08/17/17 03:11 Total Bilirubin 0.6 mg/dL (0.3-1.0) 08/18/17 03:08 AST 14 Units/L (13-39) 08/18/17 03:08 ALT 10 Units/L (7-52) 08/18/17 03:08 Alkaline Phosphatase 53 Units/L (34-104) 08/18/17 03:08 Troponin I 0.03 ng/mL (< 0.04) 08/18/17 11:42 Serum Total Protein 6.3 g/dL (6.4-8.9) L 08/18/17 03:08 Albumin 4.1 g/dL (3.5-5.7) 08/18/17 03:08 Globulin 2.2 g/dL (2.4-3.5) L 08/18/17 03:08 Albumin/Globulin Ratio 1.9 (1.1-2.2) 08/18/17 03:08 Triglycerides 265 mg/dL (< 150) H 08/17/17 03:11 Cholesterol 310 mg/dL (< 200) H 08/17/17 03:11 LDL Cholesterol, Calc 217 mg/dL (0-99) H 08/17/17 03:11 VLDL Cholesterol, Calc 53 mg/dL (< 31) H 08/17/17 03:11 HDL Cholesterol 40 mg/dL (40-59) 08/17/17 03:11 Cholesterol/HDL Ratio 7.8 (0-4.9) H 08/17/17 03:11 Urine Color Yellow (Yellow) 08/16/17 20:49 Urine Clarity Clear (Clear) 08/16/17 20:49 Urine pH 6.5 pH Units (5.0-8.0) 08/16/17 20:49 Ur Specific [place] 1.017 (1.010-1.025) 08/16/17 20:49 Urine Protein Negative mg/dL (Neg-Trace) 08/16/17 20:49 Urine Glucose (UA) Normal mg/dL (Normal) 08/16/17 20:49 Urine Ketones Negative mg/dL (Negative) 08/16/17 20:49 Urine Blood Negative (Negative) 08/16/17 20:49 Urine Nitrite Negative (Negative) 08/16/17 20:49 Urine Bilirubin Negative (Negative) 08/16/17 20:49 Urine Urobilinogen Normal mg/dL (Normal) 08/16/17 20:49 Ur Leukocyte Esterase Moderate (Negative) H 08/16/17 20:49 Urine Microscopic RBC 5-15 per hpf (0-3) H 08/16/17 20:49 Urine Microscopic WBC 5-15 per hpf (0-3) H 08/16/17 20:49 Ur Squamous Epith Cells Many per lpf (None-Few) H 08/16/17 20:49 Urine Bacteria None Seen per hpf (None-Few) 08/16/17 20:49 Hyaline Casts None Seen per lpf (None-Few) 08/16/17 20:49 Ur Culture Indicated? NO. (NO) A 08/16/17 20:49 Salicylates < 2.5 mg/dL (15.0-30.0) L 08/16/17 14:45 Urine Opiates Screen Negative ng/mL (Esxnvg=132) 08/16/17 14:40 Acetaminophen < 10 mcg/mL (10-20) L 08/16/17 14:45 Ur Barbiturates Screen Negative ng/mL (Vbpmsa=846) 08/16/17 14:40 Ur Phencyclidine Scrn Negative ng/mL (Cutoff=25) 08/16/17 14:40 Ur Amphetamines Screen Negative ng/mL (Vtpzvh=6127) 08/16/17 14:40 U Benzodiazepines Scrn Negative ng/mL (Axxxit=424) 08/16/17 14:40 Urine Cocaine Screen Negative ng/mL (Cutoff= 300) 08/16/17 14:40 U Marijuana (THC) Screen Negative ng/mL (Cutoff = 50) 08/16/17 14:40 Ethyl Alcohol < 10 mg/dL (Less than 10) 08/16/17 14:45 - Impressions Impressions Echocardiogram 08/17/17 18:54 Impressions: LVEF 45-50%. Low normal to mildly reduced LV systolic function. Normal LV chamber size and wall thickness. Mild left ventricular diastolic dysfunction. Normal right ventricular structure and function. No evidence of pulmonary hypertension. No significant valvular dysfunction. Left Ventricular Wall Motion: Rest Echo Findings The apex, apical inferior, mid inferior, basal inferior, apical anterior, mid anterior, basal anterior, apical septal, mid inferior septal, basal inferior septal, apical lateral, mid anterior lateral, basal anterior lateral, mid anterior septal, mid inferior lateral, basal anterior septal and basal inferior lateral linares were hypokinetic. Findings: Study Quality * Technically adequate exam. ECG Findings * Normal sinus rhythm. Left Ventricle * LVEF 45-50%. Low normal to mildly reduced LV systolic function. * Normal LV chamber size and wall thickness. * Mild left ventricular diastolic dysfunction. Right Ventricle * Normal right ventricular structure and function. Left Atrium * Normal left atrial size. Right Atrium * Normal right atrial size. Aortic Valve * Aortic valve not well visualized. * No aortic regurgitation. * No aortic stenosis. Mitral Valve * Normal mitral valve structure and function. * No mitral regurgitation. * No mitral stenosis. Tricuspid Valve * Normal tricuspid valve structure and function. * Trace tricuspid regurgitation. * No evidence of pulmonary hypertension. Pulmonic Valve * Pulmonic valve is not well visualized. * No pulmonic regurgitation. Aorta * Normally sized aortic root. Pericardium * The pericardium appears normal. IVC * Normal IVC dimensions and inspiratory collapse. Pulmonary Artery * Normal visualized portions of the main pulmonary artery. Consult Discharge Plan - Plan Referrals: Dalila Weston CNP [Primary Care Provider] -
[2017-08-18 14:27] VITALS: BP 112/77
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
--- NOTE | 2017-08-19 18:16 | Electrocardiograph Report ---
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
== END 2017-08-18 17:35 | disposition left against medical advice (07) | DRG 190 ==
LOC: 3BNU 14:14 → EMEROO 14:14 → 3BNU 18:04
PROVIDERS: ADMIT Pediatrics; ATTEND Pediatrics